=== PATIENT | female | born 1935 | race Caucasian/White ===

== ENCOUNTER 2019-05-09 00:09 | Emergency (ER) | payer MEDICAID, MEDICARE ==
--- NOTE | 2019-05-09 00:45 | ED Physician Chart ---
ED Chief Complaint/HPI - Patient Information Date Seen:: 05/09/19 Time Seen:: 00:20 Chief Complaint:: eyebrow laceration History of Present Illness:: Patient reportedly fell out of bed at 2300 tonight. It is mentioned on the transfer document the patient has erythema of the left hip. Last tetanus biooster unknown Allergies:: Allergies Allergy/AdvReac Type Severity Reaction Status Date / Time No Known Allergies Allergy Verified 05/09/19 00:35 Vitals:: Vital Signs - 8 hr 05/09/19 00:10 Temp 97.1 F HR 96 RR 19 BP 127/66 O2 Sat % 94 Historian:: Family Member Review:: Nurse's Note Reviewed, Transfer documents Reviewed ED Review of Systems - Review of Systems General/Constitutional: No fever, No chills Skin: Skin lesions Head: No headache Eyes: No loss of vision ENT: No earache Neck: No neck pain, No swelling Cardio Vascular: No chest pain, No palpitations Pulmonary: No SOB GI: No nausea, No vomiting, No diarrhea Musculoskeletal: No bone or joint pain Endocrine: No polyuria Psychiatric: No prior psych history, No depression Hematopoietic: No bruising Allergic/Immuno: No urticaria Neurological: No syncope, No focal symptoms ED Past Medical History - Past Medical History Past Medical History: HTN, CVA/TIA, Dementia, Other (status post sepsis; history of respiratory failure; ) Family History: Heart disease, Diabetes Melitus, HTN Social History: Non Smoker, No Alcohol Surgical History: Hernia Psychiatricy History: Dementia Medication: Reviewed ED Physical Exam - Physical Examination General/Constitutional: Awake, Well-developed, well-nourished, Alert Other Head comments:: 1 cm laceration lateral aspect left eyebrow Eyes: Lids, conjuctiva normal, PERRL Skin: No rash ENMT: External ears, nose nl Neck: No nuchal rigidity Respiratory: Nl effort/Exclusion, Clear to Auscultation Other Cardio Vascular comments:: Heart sounds faint; pulse regular GI: No tenderness/rebounding/guarding, No organomegaly : No CVA tenderness Extremities: Normal digits & nails Other Extremities comments:: About 5 cm of very mild erythema left hip; flexion abduction external rotation left hip without resistance or any signs of discomfort. Neuro/Psych: No focal deficits ED Assessment - Procedures Procedures:: Skin cleansed Betadine solution; 1% lidocaine with epinephrine used for local anesthesia; laceration irrigated with normal saline; 6-0 chromic one interrupted and 5 running sutures to close the laceration Laceration Type:: Simple Inspection: No dirt/debris, NO FB ED Septic Shock - . Is Septic Shock (SBP<90, OR Lactate>4 mmol\L) present?: No - <6hrs of presentation: Vital Signs: Vital Signs - 8 hr // 00:10 Temp 97.1 F HR 96 RR 19 BP 127/66 O2 Sat % 94 ED Reassessment (Disposition) - Reassessment Reassessment Condition:: Improved - Diagnosis Diagnosis:: 1 cm eyebrow laceration - Aftercare/Follow up Instructions Aftercare/Follow-Up Instructions:: Refer to Discharge Instructions - Patient Disposition Discharge/Transfer:: Data Storage Specialist Care - SNF Transport Method:: BLS Condition at Disposition:: Stable, Improved
== END 2019-05-09 04:09 ==
LOC: ER 00:09
DX: S01.112A Laceration without foreign body of left eyelid and periocular area, initial encounter (principal); I10 Essential (primary) hypertension; F03.90 Unspecified dementia, unspecified severity, without behavioral disturbance, psychotic disturbance, mood disturbance, and anxiety; Z86.73 Personal history of transient ischemic attack (TIA), and cerebral infarction without residual deficits; W06.XXXA Fall from bed, initial encounter; Y93.89 Activity, other specified; Y92.89 Other specified places as the place of occurrence of the external cause; Y99.8 Other external cause status
CPT/HCPCS: 12011; X6488; Z7502